=== PATIENT | male | born 1990 | race Caucasian/White ===

== ENCOUNTER 2022-05-19 11:47 | Emergency (ER) | payer MEDICAID ==
[~2022-05-19] VITALS: Ht 165.1 cm; Wt 90.7 kg
--- NOTE | 2022-05-19 12:15 | NUR ---
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 assisted to er bed 12 safely. awaiting for md christina.
--- NOTE | 2022-05-19 12:18 | NUR ---
at bedside for eval
--- NOTE | 2022-05-19 12:27 | NUR ---
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 assisted to er bed 12 safely. awaiting for md christina.
[2022-05-19] MEDS ORDERED: IV NS 0.9% 1,000 ML BAG IV ONE (12:30)
[2022-05-19] MEDS ORDERED: FENTANYL PF 100MCG/2ML AMPUL IV ONE (12:30)
[2022-05-19] MEDS ORDERED: MIDAZOLAM HCL 2 MG/2ML VIAL IV ONE (12:30)
[2022-05-19] MEDS ORDERED: FENTANYL PF 100MCG/2ML AMPUL ONE (12:37)
[2022-05-19] MEDS ORDERED: MIDAZOLAM HCL 5 MG/5ML VIAL ONE (12:37)
--- NOTE | 2022-05-19 12:44 | NUR ---
RADIATION THERAPY TECHNOLOGIST AT BEDSIDE FOR PROCEDURE CONSENT AND MODERATE SEDATION CONSENT
--- NOTE | 2022-05-19 13:00 | NUR ---
CLOSE REDUCTION OF THE L ANKLE DONE BY DR GARCIA WITH FENTANYL 50MCG IV AND VERSED 5MG IV.
[2022-05-19] MEDS ORDERED: HYDR-4209 PO (13:21)
--- NOTE | 2022-05-19 14:50 | NUR ---
IV removed. Catheter intact and site benign. Pressure and 4x4 applied to site. No bleeding noted.Patient discharged to home in stable condition. Written and verbal after care instructions given. Patient verbalizes understanding of instruction.
[2022-05-19 14:54] VITALS: BP 130/80
== END 2022-05-19 14:50 | disposition home or self-care (01) ==
LOC: ER 11:57
DX: S93.05XA Dislocation of left ankle joint, initial encounter (principal); Z60.2 Problems related to living alone; Z79.899 Other long term (current) drug therapy; W18.09XA Striking against other object with subsequent fall, initial encounter; Y93.89 Activity, other specified; Y92.480 Sidewalk as the place of occurrence of the external cause; Y99.8 Other external cause status
CPT/HCPCS: 99285; 27840; 96360; 99152; 73610; 73630 ×2; J3010; J2250; A6403; G0500